=== PATIENT | male | born 1990 | race Caucasian/White ===

== ENCOUNTER 2019-09-27 11:25 | Emergency (ER) | payer MEDICAID ==
[~2019-09-27] VITALS: Ht 182.9 cm; Wt 56.4 kg
[2019-09-27 11:29] VITALS: Ht 182.9 cm; Wt 56.4 kg
[2019-09-27 12:21] VITALS: BP 112/68
== END 2019-09-27 12:21 | disposition home or self-care (01) ==
LOC: D.ER 11:25
DX: G43.909 Migraine, unspecified, not intractable, without status migrainosus (principal); J44.9 Chronic obstructive pulmonary disease, unspecified; Z72.0 Tobacco use